=== PATIENT | female | born 1990 | race American Indian/Alaskan Native ===

== ENCOUNTER 2019-03-20 11:15 | Emergency (ER) | payer MEDICAID ==
[2019-03-20 11:25] VITALS: BP 140/84
--- NOTE | 2019-03-20 11:27 | Event Note ---
ED Screening Note ED Screening Note: low back pain rad to thoracic pain hip pain on bcp denies trauma denies dysuria denies vag dc hx of same but today is worse bp n This initial assessment/diagnostic orders/clinical plan/treatment(s) is/are subject to change based on patients health status, clinical progression and re- assessment by fellow clinical providers in the ED. Further treatment and workup at subsequent clinical providers discretion. Patient/guardian urged not to elope from the ED as their condition may be serious if not clinically assessed and managed. Initial orders include: ua ? imaging- reeval in [facility]
[2019-03-20] MEDS ORDERED: DECADRON IM ONE (12:25)
[2019-03-20] MEDS ORDERED: TORADOL IM ONE (12:25)
[2019-03-20] MEDS ORDERED: ULTRAM PO ONE (12:29)
[2019-03-20] MEDS ORDERED: ROBAXIN PO ONE (13:28)
--- NOTE | 2019-03-20 13:34 | Emergency Department Report ---
ED Back Pain/Injury HPI - General Chief Complaint: Back Pain/Injury Stated Complaint: BACK PAIN Time Seen by Provider: 03/20/19 11:27 Source: patient Limitations: No Limitations - History of Present Illness Initial Comments: 28-year-old female with history of chronic back pain presents to ED with exacerbation of of back pain since yesterday. Patient states she bent over to pull her pants up, and experienced pain in her lower back at that time. MD Complaint: back pain -: days(s) (1) Similar Symptoms Previously: Yes Place: home Radiation: buttocks Severity: moderate Quality: sharp Consistency: intermittent Improves With: immobilization Worsens With: movement, sitting upright, walking Context: bending Associated Symptoms: denies other symptoms - Related Data Previous Rx's Medication Instructions Recorded Last Taken Type Erythromycin Base [Erythromycin] 500 mg PO QDAY #10 tablet 08/04/16 Unknown Rx Naproxen [Naprosyn] 500 mg PO BID #20 tablet 03/20/19 Unknown Rx methOCARBAMOL [Robaxin TAB] 500 mg PO Q8HR PRN #20 tablet 03/20/19 Unknown Rx traMADol [Ultram] 50 mg PO Q6HR PRN #7 tablet 03/20/19 Unknown Rx Allergies Allergy/AdvReac Type Severity Reaction Status Date / Time amoxicillin [Amoxicillin] Allergy Swelling Verified 03/20/19 11:16 ED Review of Systems ROS: Stated complaint: BACK PAIN Other details as noted in HPI Comment: All other systems reviewed and negative Constitutional: denies: chills, fever Gastrointestinal: denies: abdominal pain Musculoskeletal: back pain Neurological: denies: weakness, numbness ED Past Medical Hx - Past Medical History Hx Hypertension: No Hx Diabetes: No Hx Deep Vein Thrombosis: No Hx Renal Disease: No Hx Sickle Cell Disease: No Hx Seizures: No Hx Asthma: No Hx HIV: No Additional medical history: OBESITY - Surgical History Additional Surgical History: LEEP PROCEDURE - Social History Smoking Status: Never Smoker Substance Use Type: None - Medications Home Medications: Home Medications Medication Instructions Recorded Confirmed Last Taken Type Erythromycin Base [Erythromycin] 500 mg PO QDAY #10 tablet 08/04/16 Unknown Rx Naproxen [Naprosyn] 500 mg PO BID #20 tablet 03/20/19 Unknown Rx methOCARBAMOL [Robaxin TAB] 500 mg PO Q8HR PRN #20 tablet 03/20/19 Unknown Rx traMADol [Ultram] 50 mg PO Q6HR PRN #7 tablet 03/20/19 Unknown Rx ED Physical Exam - General Limitations: No Limitations General appearance: alert, in no apparent distress, obese - Head Head exam: Present: atraumatic - Eye Eye exam: Present: normal appearance, PERRL, EOMI - ENT ENT exam: Present: mucous membranes moist - Neck Neck exam: Present: normal inspection - Respiratory Respiratory exam: Present: normal lung sounds bilaterally. Absent: respiratory distress - Cardiovascular Cardiovascular Exam: Present: normal rhythm, tachycardia - GI/Abdominal GI/Abdominal exam: Present: soft. Absent: distended, tenderness - Extremities Exam Extremities exam: Present: normal inspection - Back Exam Back exam: Present: paraspinal tenderness (lower lumbar) - Neurological Exam Neurological exam: Present: alert, oriented X3, normal gait. Absent: motor sensory deficit - Psychiatric Psychiatric exam: Present: normal affect, normal mood - Skin Skin exam: Present: warm, dry, intact, normal color ED Course Vital Signs 03/20/19 11:23 Temperature 98.2 F Pulse Rate 108 H Respiratory 15 Rate Blood Pressure 140/84 [Left] O2 Sat by Pulse 99 Oximetry Critical care attestation.: If time is entered above; I have spent that time in minutes in the direct care of this critically ill patient, excluding procedure time. ED Disposition Clinical Impression: Acute exacerbation of chronic low back pain Disposition: DC-01 TO HOME OR SELFCARE Is pt being admited?: No Condition: Stable Instructions: Chronic Back Pain (ED) Prescriptions: Naproxen [Naprosyn] 500 mg PO BID #20 tablet methOCARBAMOL [Robaxin TAB] 500 mg PO Q8HR PRN #20 tablet PRN Reason: Muscle Spasm traMADol [Ultram] 50 mg PO Q6HR PRN #7 tablet PRN Reason: Pain Referrals: NAREN SINGH MD [Primary Care Provider] - 3-5 Days
== END 2019-03-20 14:07 | disposition home or self-care (01) ==
LOC: ED 11:15
DX: M54.5 Low back pain (principal); G89.29 Other chronic pain
CPT/HCPCS: 96372; 99282; J1100; J1885

== ENCOUNTER 2019-08-05 16:40 | Emergency (ER) | payer MEDICAID ==
[2019-08-05 16:51] VITALS: BP 108/69
--- NOTE | 2019-08-05 18:07 | Event Note ---
ED Screening Note Date of service: 08/05/19 Time: 18:02 ED Screening Note: This initial assessment/diagnostic orders/clinical plan/treatment(s) is/are subject to change based on patients health status, clinical progression and re- assessment by fellow clinical providers in the ED. Further treatment and workup at subsequent clinical providers discretion. Patient/guardian urged not to elope from the ED as their condition may be serious if not clinically assessed and managed. 28 yo female with hx of chronic back pain. Around 10am while carrying groceries she developed sharp pain on the right upper back with spasms that is not going away. She taken muscle relaxer at home with no relief. Initial orders include:
== END 2019-08-05 21:05 | disposition left against medical advice (07) ==
LOC: ED 16:40
DX: M54.9 Dorsalgia, unspecified (principal); Z53.21 Procedure and treatment not carried out due to patient leaving prior to being seen by health care provider

== ENCOUNTER 2020-09-25 16:19 | Emergency (ER) | payer MEDICAID ==
[2020-09-25 16:24] VITALS: BP 119/59
[2020-09-25] MEDS ORDERED: METOCLOPRAMIDE 10 MG/2 ML INJ IV ONE (16:24)
[2020-09-25] MEDS ORDERED: SODIUM CHLORIDE 0.9% 1000 ML 1,000 ML IV ONE (16:24)
[2020-09-25 17:12] LABS: Basophils # (Auto) 0.1 K/mm3 (0.0-0.1); Basophils % (Auto) 0.4 % (0.0-1.8); Eosinophils % (Auto) 0.3 % (0.0-4.3); Hematocrit 37.2 % (30.3-42.9); Hemoglobin 12.4 gm/dl (10.1-14.3); Lymphocytes # (Auto) 2.9 K/mm3 (1.2-5.4); Lymphocytes % (Auto) 21.5 % (13.4-35.0); Mean Corpuscular HGB Conc 33 % (30-34); Mean Corpuscular Volume 89 fl (79-97); Monocytes # (Auto) 0.9 K/mm3 (0.0-0.8); Platelet Count 246 K/mm3 (140-440); Red Blood Count 4.16 M/mm3 (3.65-5.03); Red Cell Distribution Width 14.4 % (13.2-15.2)
[2020-09-25 17:30] LABS: Blood Urea Nitrogen 9 mg/dL (7-17); Calcium 8.8 mg/dL (8.4-10.2); Hemolysis Index 14
[2020-09-25 17:55] LABS: BUN/Creatinine Ratio 13
--- NOTE | 2020-09-25 18:11 | Emergency Department Report ---
ED N/V/D HPI - General Chief complaint: Nausea/Vomiting/Diarrhea Stated complaint: 7WKS /VOMITING Time Seen by Provider: 09/25/20 16:23 Source: patient Mode of arrival: Ambulatory Limitations: No Limitations - History of Present Illness Initial comments: This is a 29-year-old female that is about 7 weeks nontoxic, well nourished in appearance, no acute signs of distress presents to the ED with c/o of nausea and vomiting several days. Patient was sent by [facility] due to nausea vomiting. Patient describes vomiting as food content. Patient denies any abdominal pain, pelvic pain, vaginal bleeding, chest pain, short of breath, feve r, chills, headache, stiff neck, numbness or tingling. Patient denies any diarrhea or constipation. Denies any blood in stool. Patient denies any recent travels. Patient stated allergies to amoxicillin. Denies any significant past medical history. MD complaint: nausea, vomiting -: days(s) Associated Abdominal Pain: No Radiation: none Pain Scale: 0 Improves with: none Worsens with: none Associated Symptoms: nausea/vomiting. denies: myalgias, chest pain, cough, diaphoresis, fever/chills, headaches, loss of appetite, malaise, rash, dysuria, shortness of breath, syncope, weakness - Related Data Previous Rx's Medication Instructions Recorded Last Taken Type Erythromycin Base [Erythromycin] 500 mg PO QDAY #10 tablet 08/04/16 Unknown Rx Naproxen [Naprosyn] 500 mg PO BID #20 tablet 03/20/19 Unknown Rx methOCARBAMOL [Robaxin TAB] 500 mg PO Q8HR PRN #20 tablet 03/20/19 Unknown Rx traMADoL [Ultram] 50 mg PO Q6HR PRN #7 tablet 03/20/19 Unknown Rx Metoclopramide [Reglan] 10 mg PO Q12H PRN #12 tab 09/25/20 Unknown Rx Allergies Allergy/AdvReac Type Severity Reaction Status Date / Time amoxicillin [Amoxicillin] Allergy Swelling Verified 03/20/19 11:16 ED Review of Systems ROS: Stated complaint: 7WKS /VOMITING Other details as noted in HPI Comment: All other systems reviewed and negative Constitutional: denies: chills, fever Eyes: denies: eye pain, eye discharge, vision change ENT: denies: ear pain, throat pain Respiratory: denies: cough, shortness of breath, wheezing Cardiovascular: denies: chest pain, palpitations Endocrine: no symptoms reported Gastrointestinal: nausea, vomiting. denies: abdominal pain, diarrhea, constipation, hematemesis, melena, hematochezia Genitourinary: denies: urgency, dysuria, discharge Musculoskeletal: denies: back pain, joint swelling, arthralgia Skin: denies: rash, lesions Neurological: denies: headache, weakness, paresthesias Psychiatric: denies: anxiety, depression Hematological/Lymphatic: denies: easy bleeding, easy bruising ED Past Medical Hx - Past Medical History Previous Medical History?: Yes Hx Hypertension: No Hx Diabetes: No Hx Deep Vein Thrombosis: No Hx Renal Disease: No Hx Sickle Cell Disease: No Hx Seizures: No Hx Asthma: No Hx HIV: No Additional medical history: Uterine fibroids - Surgical History Past Surgical History?: Yes Additional Surgical History: LEEP PROCEDURE - Social History Smoking Status: Never Smoker Substance Use Type: None - Medications Home Medications: Home Medications Medication Instructions Recorded Confirmed Last Taken Type Erythromycin Base [Erythromycin] 500 mg PO QDAY #10 tablet 08/04/16 Unknown Rx Naproxen [Naprosyn] 500 mg PO BID #20 tablet 03/20/19 Unknown Rx methOCARBAMOL [Robaxin TAB] 500 mg PO Q8HR PRN #20 tablet 03/20/19 Unknown Rx traMADoL [Ultram] 50 mg PO Q6HR PRN #7 tablet 03/20/19 Unknown Rx Metoclopramide [Reglan] 10 mg PO Q12H PRN #12 tab 09/25/20 Unknown Rx ED Physical Exam - General Limitations: No Limitations General appearance: alert, in no apparent distress - Head Head exam: Present: atraumatic, normocephalic - Eye Eye exam: Present: normal appearance - Neck Neck exam: Present: normal inspection, full ROM - Respiratory Respiratory exam: Absent: respiratory distress - Cardiovascular Cardiovascular Exam: Present: regular rate - GI/Abdominal GI/Abdominal exam: Present: soft, normal bowel sounds. Absent: distended, tenderness, guarding, rebound, rigid, diminished bowel sounds - Extremities Exam Extremities exam: Present: normal inspection, full ROM - Back Exam Back exam: Present: normal inspection, full ROM. Absent: tenderness, CVA tenderness (R), CVA tenderness (L), muscle spasm, paraspinal tenderness, vertebral tenderness, rash noted - Neurological Exam Neurological exam: Present: alert, oriented X3, normal gait - Psychiatric Psychiatric exam: Present: normal affect, normal mood - Skin Skin exam: Present: warm, dry, intact, normal color. Absent: rash ED Course Vital Signs 09/25/20 16:23 Temperature 98.8 F Pulse Rate 83 Respiratory 18 Rate Blood Pressure 119/59 [Right] O2 Sat by Pulse 96 Oximetry - Reevaluation(s) Reevaluation #1: 09/25/20 18:09 Patient is speaking in full sentences with no signs of distress noted. ED Medical Decision Making - Lab Data Result diagrams: 09/25/20 16:54 09/25/20 16:54 - Medical Decision Making This is a 29-year-old female that presents with nausea and vomiting. Patient is stable and was examined by me. There is no abdominal tenderness. Negative signs of symptoms of appendicitis, cholecystitis or acute abdomen. Labs obtained. Vital signs are stable prior to discharge. Patient received Reglan and 1L Normal saline in the ED which patient stated symptoms has resovled and subsided. A by mouth challenge has been obtained and patient tolerated well with no nausea vomiting. Patient was also instructed to Follow-up with a [facility] doctor in 3-5 days or if symptoms worsen and continue return to emergency room as soon as possible. At time of discharge, the patient does not seem toxic or ill in appearance. No acute signs of distress noted. Patient agrees to discharge treatment plan of care. No further questions noted by the patient. Critical care attestation.: If time is entered above; I have spent that time in minutes in the direct care of this critically ill patient, excluding procedure time. ED Disposition Clinical Impression: Hyperemesis gravidarum Disposition: DC-01 TO HOME OR SELFCARE Is pt being admited?: No Does the pt Need Aspirin: No Condition: Stable Instructions: Hyperemesis Gravidarum Additional Instructions: Follow-up with a [facility] doctor in 3-5 days or if symptoms worsen and continue return to emergency room as soon as possible Prescriptions: Metoclopramide [Reglan] 10 mg PO Q12H PRN #12 tab PRN Reason: Nausea Referrals: FLAVIA DUCKWORTH MD [Primary Care Provider] - 3-5 Days [facility] [Provider Group] - 3-5 Days [facility] [Provider Group] - 3-5 Days Time of Disposition: 18:11
== END 2020-09-25 18:21 | disposition home or self-care (01) ==
LOC: ED 16:19
DX: O21.0 Mild hyperemesis gravidarum (principal); O21.8 Other vomiting complicating pregnancy; Z3A.01 Less than 8 weeks gestation of pregnancy; Z98.890 Other specified postprocedural states; Z79.899 Other long term (current) drug therapy; Z88.1 Allergy status to other antibiotic agents
CPT/HCPCS: 36415; 80048; 84702; 85025; 96361; 96374; 99283; J2765; J7030

== ENCOUNTER 2021-05-20 09:27 | Emergency (ER) | payer MEDICAID ==
--- NOTE | 2021-05-20 10:12 | Emergency Department Report ---
ED General Adult HPI - General Chief complaint: Chest Pain Stated complaint: FEET EDEMA/CP Time Seen by Provider: 05/20/21 10:11 Source: patient Mode of arrival: Ambulatory Limitations: No Limitations - History of Present Illness Initial comments: Patient presented with a 2-day to 3-day history of episodic chest pain. She describes some chest pain in the precordial area described as tightness. This seems to be slightly worse when supine. It is described as tightness. It does not radiate or migrate. These episodes last 10 or 15 minutes. When she sits up, she feels slightly better. She is also noticed swelling in the feet and ankles associate with pain. This is bilateral. That has been present for the last several months, but worse over the last couple of days. She has not been eating more salt than usual. She has not been on her feet more than usual. It should be noted that she is 6 days . This was uncomplicated term de livery. There is no blurry vision. She has not noticed any urinary symptoms. Pain is not pleuritic. - Related Data Previous Rx's Medication Instructions Recorded Last Taken Type Erythromycin Base [Erythromycin] 500 mg PO QDAY #10 tablet 08/04/16 Unknown Rx Naproxen [Naprosyn] 500 mg PO BID #20 tablet 03/20/19 Unknown Rx methOCARBAMOL [Robaxin TAB] 500 mg PO Q8HR PRN #20 tablet 03/20/19 Unknown Rx traMADoL [Ultram] 50 mg PO Q6HR PRN #7 tablet 03/20/19 Unknown Rx Metoclopramide [Reglan] 10 mg PO Q12H PRN #12 tab 09/25/20 Unknown Rx Allergies Allergy/AdvReac Type Severity Reaction Status Date / Time amoxicillin [Amoxicillin] Allergy Swelling Verified 03/20/19 11:16 ED Review of Systems ROS: Stated complaint: FEET EDEMA/CP Other details as noted in HPI Comment: All other systems reviewed and negative Constitutional: denies: fever Eyes: denies: vision change ENT: denies: ear pain, throat pain Respiratory: denies: cough, orthopnea Cardiovascular: as per HPI Endocrine: denies: unexplained weight loss Gastrointestinal: denies: abdominal pain Genitourinary: denies: dysuria, hematuria Musculoskeletal: denies: back pain Skin: denies: rash Neurological: denies: headache, numbness, paresthesias Hematological/Lymphatic: denies: easy bruising ED Past Medical Hx - Past Medical History Previous Medical History?: No Hx Hypertension: No Hx Diabetes: No Hx Deep Vein Thrombosis: No Hx Renal Disease: No Hx Sickle Cell Disease: No Hx Seizures: No Hx Asthma: No Hx HIV: No Additional medical history: Uterine fibroids - Surgical History Past Surgical History?: Yes Additional Surgical History: LEEP PROCEDURE - Family History Family history: hypertension - Social History Smoking Status: Never Smoker Substance Use Type: None - Medications Home Medications: Home Medications Medication Instructions Recorded Confirmed Last Taken Type Erythromycin Base [Erythromycin] 500 mg PO QDAY #10 tablet 08/04/16 Unknown Rx Naproxen [Naprosyn] 500 mg PO BID #20 tablet 03/20/19 Unknown Rx methOCARBAMOL [Robaxin TAB] 500 mg PO Q8HR PRN #20 tablet 03/20/19 Unknown Rx traMADoL [Ultram] 50 mg PO Q6HR PRN #7 tablet 03/20/19 Unknown Rx Metoclopramide [Reglan] 10 mg PO Q12H PRN #12 tab 09/25/20 Unknown Rx ED Physical Exam - General Limitations: No Limitations General appearance: alert, in no apparent distress - Head Head exam: Present: atraumatic, normal inspection - Eye Eye exam: Present: normal appearance, PERRL, EOMI. Absent: scleral icterus - ENT ENT exam: Present: normal exam, normal orophraynx, mucous membranes moist - Neck Neck exam: Present: full ROM. Absent: tenderness, meningismus - Respiratory Respiratory exam: Present: normal lung sounds bilaterally. Absent: respiratory distress - Cardiovascular Cardiovascular Exam: Present: regular rate, normal rhythm - GI/Abdominal GI/Abdominal exam: Present: soft. Absent: distended, tenderness - Extremities Exam Extremities exam: Present: full ROM, normal capillary refill, pedal edema (Bilateral at 3+) - Back Exam Back exam: Absent: CVA tenderness (R), CVA tenderness (L) - Neurological Exam Neurological exam: Present: alert, oriented X3, CN II-XII intact, normal gait, reflexes normal. Absent: motor sensory deficit - Psychiatric Psychiatric exam: Present: normal affect, normal mood - Skin Skin exam: Present: warm, dry ED Course Vital Signs 05/20/21 05/20/21 05/20/21 09:50 10:58 12:32 Temperature 98.8 F 98.7 F Pulse Rate 77 88 88 Respiratory 18 19 19 Rate Blood Pressure 139/84 Blood Pressure 122/83 128/81 [Right] O2 Sat by Pulse 100 100 99 Oximetry 05/20/21 18:10 Temperature Pulse Rate 88 Respiratory 19 Rate Blood Pressure Blood Pressure 132/88 [Right] O2 Sat by Pulse 99 Oximetry - Reevaluation(s) Reevaluation #1: 05/20/21 10:11 EKG was noted. IV labs were ordered. Reevaluation #2: 05/20/21 11:58 Labs of been noted. X-ray was reviewed. D-dimer was noted and a CT angiogram has been ordered. Reevaluation #3: 05/20/21 12:36 Patient is resting. Labs have been discussed. CT has been discussed and is pending. She was given juice to drink. Reevaluation #4: 05/20/21 16:[address] We are still awaiting CT angiogram. An appropriate IV cannot be established as of yet. The patient does not need central IV access. Reevaluation #5: 05/20/21 18:11 CT was noted. ED Medical Decision Making - Lab Data Result diagrams: 05/20/21 10:30 05/20/21 10:30 - EKG Data -: EKG Interpreted by Oh EKG shows normal: sinus rhythm, axis, intervals, QRS complexes Rate: normal - EKG Data Interpretation: other (Patient has normal sinus rhythm with normal intervals including a QT corrected of 1-36. Patient has isolated T wave inversion in lead III.) - Radiology Data Radiology results: report reviewed - Medical Decision Making Patient presented secondary to difficulty breathing associated with some chest pain and dependent edema. There is no evidence of cardiomyopathy. She does not have evidence of STEMI or NSTEMI. Based on her presentation, there was no evidence of PE. CT was obtained based on the elevated D-dimer. She certainly does not have evidence of preeclampsia or help syndrome. There is no proteinuria. Blood pressure has not been persistently elevated. She has not had any clonus. Patient can be treated symptomatically and referred for outpatient evaluation and follow-up. Critical Care Time: No Critical care attestation.: If time is entered above; I have spent that time in minutes in the direct care of this critically ill patient, excluding procedure time. ED Disposition Clinical Impression: Shortness of breath, Dependent edema, Elevated blood pressure reading Disposition: 01 HOME / SELF CARE / HOMELESS Is pt being admited?: No Does the pt Need Aspirin: No Condition: Stable Instructions: Shortness of Breath, Adult, [id number], Edema, Preventing Hypertension Additional Instructions: Elevate the feet. Avoid salt. Drink plenty of water. Return for problems. Follow-up with your regular physician for recheck and further management. Referrals: [facility], [Primary Care Provider] - 3-5 Days
[2021-05-20 11:12] LABS: Basophils % (Auto) 0.2 % (0.0-1.8); Eosinophils # (Auto) 0.1 K/mm3 (0.0-0.4); Hemoglobin 11.2 gm/dl (10.1-14.3); Lymphocytes # (Auto) 1.9 K/mm3 (1.2-5.4); Lymphocytes % (Auto) 29.2 % (13.4-35.0); Mean Corpuscular HGB Conc 33 % (30-34); Mean Corpuscular Volume 86 fl (79-97); Monocytes # (Auto) 0.3 K/mm3 (0.0-0.8); Monocytes % (Auto) 5.2 % (0.0-7.3); Platelet Count 265 K/mm3 (140-440); Red Blood Count 3.94 M/mm3 (3.65-5.03); Red Cell Distribution Width 16.5 % (13.2-15.2)
[2021-05-20 11:20] LABS: Bilirubin,Urine NEG (Negative); Blood,Urine SM (Negative); Color,Urine Yellow (Yellow); Mucus,Urine 3+ /HPF; Protein,Urine <15 mg/dL mg/dL (Negative); Urobilinogen,Urine < 2.0 mg/dL (<2.0)
[2021-05-20 11:42] LABS: Alanine Aminotransferase 38 units/L (7-56); Albumin 3.6 g/dL (3.9-5); BUN/Creatinine Ratio 15; Blood Urea Nitrogen 15 mg/dL (7-17); Calcium 9.1 mg/dL (8.4-10.2); Hemolysis Index 5
--- NOTE | 2021-05-20 11:59 | XRay Report ---
CHEST 2 VIEWS INDICATION / CLINICAL INFORMATION: Chest pain. COMPARISON: None available. FINDINGS: SUPPORT DEVICES: None. HEART / MEDIASTINUM: The heart size and pulmonary vasculature are normal. The aorta is normal in yajaira nika. LUNGS / PLEURA: No significant pulmonary or pleural abnormality. No pneumothorax. ADDITIONAL FINDINGS: No significant additional findings. IMPRESSION: No acute findings. Signer Name: Carlos Phillips MD Signed: 05/20/2021 11:54 AM Workstation Name: [id number]
[2021-05-20] MEDS ORDERED: MORPHINE 4 MG/1 ML INJ IV ONE (16:02)
--- NOTE | 2021-05-20 17:45 | Cat Scan Report ---
CTA CHEST WITH IV CONTRAST INDICATION: Chest pain, elevated D-dimer dyspnea TECHNIQUE: Axial CT images were obtained through the chest after injection of 100 mL IV contrast. 3 plane MIP re constructions were produced. All CT scans at this location are performed using CT dose reduction for ALARA by means of automated exposure control. COMPARISON: None available. FINDINGS: PULMONARY ARTERIES: No pulmonary emboli. AORTA AND ARTERIES: No acute abnormality. MEDIASTINUM: No mass, lymphadenopathy or other significant abnormality. The heart is normal in size w ithout a pericardial effusion. The trachea and main bronchi are patent and normal in caliber. LUNGS: No suspicious consolidation, nodule or mass. No pneumothorax or pleural effusion. ADDITIONAL FINDINGS: None. UPPER ABDOMEN: No acute findings. BONES: No significant osseous abnormality. IMPRESSION: 1. No CT evidence for pulmonary embolism. 2. No acute findings. Signer Name: Kenroy Mart MD Signed: 05/20/2021 5:40 PM Workstation Name: [id number]
[2021-05-20 18:11] VITALS: BP 132/88
--- NOTE | 2021-05-22 13:20 | Electrocardiograph Report ---
[facility] Test Date: 2021-05-20 Test Time: 09:58:16 Pat Name: DAV OBRIEN Department: Room: Gender: F Mechanical Assembly: GUILLERMINA : 1990 Requested By: SUKHDEEP MATTHEWS Order Number: [id number] Reading MD: Ariel Plata Measurements Intervals [place] Rate: 77 P: 35 OR: 157 QRS: 30 QRSD: 79 T: 2 QT: 386 QTc: 436 Interpretive Statements Sinus rhythm Low voltage, precordial leads Probable anteroseptal infarct, old No previous ECG available for comparison Electronically Signed On 05-22-2021 13:19:53 EDT by Ariel Plata
== END 2021-05-20 18:50 | disposition home or self-care (01) ==
LOC: ED 09:27
DX: R06.02 Shortness of breath (principal); R60.9 Edema, unspecified; R03.0 Elevated blood-pressure reading, without diagnosis of hypertension; D25.9 Leiomyoma of uterus, unspecified; Z88.0 Allergy status to penicillin
CPT/HCPCS: 36415; 71046; 71275; 80053; 81001; 83735; 83880; 84484; 85025; 85379; 93005; 96374; 99284; J2270; Q9967